=== PATIENT | female | born 2000 | race Caucasian/White ===

== ENCOUNTER 2022-04-16 18:27 | Emergency (ER) | payer BC, SELFPAY ==
--- NOTE | ~2022-04-16 | CT_ITS ---
EXAMINATION: CT abdomen pelvis w con DATE: 04/16/2022 22:33 INDICATION: R flank/RLQ pain, UTI TECHNIQUE: Computed tomography (CT) of the abdomen and pelvis was performed with 100 mL Omnipaque-350 intravenous contrast. Automated exposure control and iterative reconstruction technique were employe d. The dose-length product was 190.61 mGy-cm. COMPARISON: None. FINDINGS: Lower thorax: Unremarkable Liver: Normal. Biliary/Gallbladder: Gallbladder is normal. No bile duct dilation. Pancreas: No mass or duct dilation. Spleen: Normal. Adrenals:No mass. Kidneys: No mass, stone, or hydronephrosis. Symmetric nephrograms. Distal ureters are poorly visualiz ed. No suspicious calcification in the expected pathway of the ureters. GI tract: Distal esophageal and gastric wall edema. No small or large bowel dilation. Appendix not vi sualized.No definite right lower quadrant inflammatory process. Mesentery/Peritoneum: No ascites, mass, or free air. Retroperitoneum: No mass. Pelvis: Bladder wall edema and inflammatory change. Normal uterus and ovaries. No free fluid. Soft Tissues: Soft tissues and body wall unremarkable. Bones: No acute osseous finding. IMPRESSION: Esophagitis/gastritis. Cystitis. No CT evidence of ascending infection/pyelonephritis. Appendix not v isualized. No CT evidence of obstructive uropathy, noting that the distal ureters were incompletely v isualized. Reviewed, dictated and finalized at location K. IMPRESSION: Esophagitis/gastritis. Cystitis. No CT evidence of ascending infection/pyelonep hritis. Appendix not visualized. No CT evidence of obstructive uropathy, noting that the distal ureters were incompletely visualized.
[2022-04-16 19:12] VITALS: BP 117/76; PULSE 99; RESP 16; TEMP 36.7; O2SAT 100
[2022-04-16 19:34] LABS: Basophils Percent Auto 0.3 % (0.2-1.2); Eosinophils Absolute Auto 0.1 K/mm3 (0-0.3); Eosinophils Percent Auto 1.2 % (0-4.4); Hematocrit 45.3 % (37.0-47.0); Hemoglobin 15.4 g/dL (12.0-15.0); Immature Granulocyte Absolute 0.02 K/mm3 (0.00-0.031); Immature Granulocyte Percent A 0.2 % (0-0.5); Lymphocytes Absolute Auto 2.25 K/mm3 (0.9-3.2); Lymphocytes Percent Auto 24.1 % (18.3-44.2); Mean Corpuscular Hemoglobin 31.4 pg (26-34); Mean Corpuscular Volume 92.4 fl (80-100); Mean Platelet Volume 9.7 fl (7.4-10.4); Monocytes Absolute Auto 0.5 K/mm3 (0.1-0.6); Monocytes Percent Auto 5.4 % (2.6-8.5); Neutrophils Absolute Auto 6.4 K/mm3 (1.3-6.7); Neutrophils Percent Auto 68.8 % (45.5-73.1); Platelet Count Result 243 k/mm3 (150-375); White Blood Count 9.3 K/mm3 (4.5-10.0)
[2022-04-16 19:45] LABS: Alanine Aminotransferase 19 U/L (6-35); Albumin Level 4.7 g/dL (3.5-5.1); Alkaline Phosphatase 51 U/L (38-126); Anion Gap 9 mmol/L (8-16); Aspartate Amino Transferase 27 U/L (14-36); Bilirubin,Total 0.5 mg/dL (0.2-1.3); Blood Urea Nitrogen 13 mg/dL (7-17); Calcium 9.2 mg/dL (8.4-10.2); Carbon Dioxide 29 mmol/L (22-30); Chloride 100 mmol/L (98-107); Estimated CRCL calculation 86 ml/min; Estimated Glomerular Filt Rate > 60; Glucose 117 mg/dL (65-110); Lipase 57 U/L (23-300); Potassium 3.8 mmol/L (3.4-5.0); Sodium 138 mmol/L (137-145)
[2022-04-16 21:16] LABS: Appearance Urine Slightly Cloudy (Clear); Bilirubin Urine Negative (Negative); Blood Urine Trace-intact (Negative); Glucose Urine UA Negative (Negative); Ketones Urine Trace mg/dL (Negative); Leukocyte Esterase Ur 2+ LEU/UL (Negative); Nitrate Urine Negative (Negative); Protein Urine 1+ mg/dL (Negative); Urobilinogen Urine 0.2 mg/dL (<2.0); pH Urine 6.5 (5.0-9.0)
[2022-04-16 21:25] LABS: Amorphous Sediment Urine Few; Bacteria Urine Trace /hpf; Mucus Urine Rare /lpf; Squamous Epithelial Cell Urine Moderate /hpf (Few); WBC Urine >75 /hpf
[2022-04-16 21:33] LABS: Add Urine Microscopic? YES; Color Urine Yellow (Yellow)
--- NOTE | 2022-04-16 21:41 | ED.BACK ---
HPI - Back Pain/Injury General Chief Complaint: Back Pain/Injury <HATTIE Rodrigues Last Filed: 04/16/22 23:44> Stated Complaint: right flank pain <HATTIE Rodrigues Last Filed: 04/16/22 23:44> Time Seen by Provider: 04/16/22 21:18 <HATTIE Rodrigues Last Filed: 04/16/22 23:44> Source: patient <HATTIE Rodrigues Last Filed: 04/16/22 23:44> Mode of arrival: ambulatory <HATTIE Rodrigues Last Filed: 04/16/22 23:44> Limitations: no limitations <HATTIE Rodrigues Last Filed: 04/16/22 23:44> History of Present Illness HPI Narrative: Patient is a 21 y/o female who presents to the ED with c/o urinary symptoms and right lower back pain. Patient reports having pain and burning with urination, urinary frequency, urinary urgency since last week. She states her urine was slightly pink when symptoms first began, but this is since resolved. No gross hematuria. Denies previous history of UTI. She then developed right flank/lower back pain, radiating around to her right lower abdomen on Saturday (2 days ago). Pain is intermittent. She has only required 1 dose of ibuprofen at home for pain. She denies any fevers, nausea, vomiting, diarrhea, constipation. <HATTIE Rodrigues Last Filed: 04/16/22 23:44> Related Data Allergies/Adverse Reactions: Allergies Allergy/AdvReac Type Severity Reaction Status Date / Time No Known Allergies Allergy Verified 04/16/22 19:15 <HATTIE Rodrigues Last Filed: 04/16/22 23:44> Review of Systems Review of Systems: CONSTITUTIONAL: Denies fever, chills, or sweats. CARDIOVASCULAR: Denies chest pain. RESPIRATORY: Denies dyspnea. GASTROINTESTINAL: Reports R lower ABD pain. Denies nausea, vomiting, constipation, or diarrhea. GENITOURINARY: Reports dysuria, frequency, urgency. Denies hematuria. MUSCULOSKELETAL: Reports R lower back pain. <Shruti Tristan PA-C - Last Filed: 04/16/22 23:44> All systems reviewed & are unremarkable except as noted in HPI and below <Shruti Tristan PA-C - Last Filed: 04/16/22 23:44> [facility] Past Medical History Medical History: Medical History (Updated 04/17/22 @ 00:00 by Cassandra Keyes) No pertinent past medical history <Shruti Tristan PA-C - Last Filed: 04/16/22 23:44> Surgical History Surgical History: Surgical History (Updated 04/16/22 @ 23:39 by Shruti Tristan PA-C) No pertinent past surgical history <Shruti Tristan PA-C - Last Filed: 04/16/22 23:44> Social History Social History: Social History (Updated 04/16/22 @ 23:39 by Shruti Tristan PA-C) Smoking status: Never smoker Substance use: current Substance use type: marijuana <Shruti Tristan PA-C - Last Filed: 04/16/22 23:44> Exam Narrative: GENERAL: Well appearing, thin, non-toxic, in no acute distress. HEAD: Normocephalic, atraumatic. NECK: Supple. No adenopathy, no masses. RESPIRATORY: Airway patent, respirations nonlabored. Clear to auscultation bilaterally, no rales, rhonchi, wheezing. CARDIOVASCULAR: Regular rate and rhythm without murmurs, rubs, or gallops. Peripheral pulses 2+ and equal bilaterally. ABDOMINAL: Soft, no significant tenderness to palpation, nondistended, no hepatosplenomegaly. Normoactive BS. No CVA tenderness to palpation. MUSCULOSKELETAL: Moves all extremities. Strength/ROM intact without gross deformities. Mild tenderness to R lumbosacral region. SKIN: Warm, dry, normal color. No rashes. NEURO: A&O X3. Speech clear. Cranial nerves II-XII grossly intact. Steady gait. No ataxic movements. PSYCHIATRIC: Appropriate mood and affect. Normal interaction. <Shruti Tristan PA-C - Last Filed: 04/16/22 23:44> Course RIG BUILDER/PA Physician Supervision For this patient encounter, I reviewed the RIG BUILDER or PA documentation, treatment plan, and medical decision making <Bridger Cantrell MD - [facility]
[2022-04-16] MEDS: SODIUM CHLORIDE 0.9% IV 1,000 ML 999 ML IV CONT (21:57)
[2022-04-16 23:52] VITALS: PULSE 89; RESP 16; O2SAT 99
== END 2022-04-16 23:53 | disposition home or self-care (01) ==
PROVIDERS: Emergency Provider Emergency Medicine
DX: N39.0 Urinary tract infection, site not specified (principal)
CPT/HCPCS: 36415; 74177; 80053; 81001; 81025; 83690; 85025; 87077; 87086; 87088; 96365; 96368; 99284; J0131; J0696; J7030; Q9967